=== PATIENT | male | born 1990 | race Caucasian/White ===

== ENCOUNTER 2018-11-14 14:35 | Emergency (ER) | payer OTHER ==
[~2018-11-14] VITALS: Ht 172.7 cm; Wt 78.0 kg
[~2018-11-14 14:35] MED LIST: IBUP600 PO; RXHYDACE PO
[2018-11-14 15:35] LABS: BASOPHILS ABSOLUTE AUTO 0.02 K/mm3 (0.00-0.23); BASOPHILS PERCENT AUTO 0 % (0-2); EOSINOPHILS ABSOLUTE AUTO 0.02 K/mm3 (0.00-0.68); EOSINOPHILS PERCENT AUTO 0 % (0-6); Hematocrit 44.3 % (37.0-53.0); Hemoglobin 14.7 g/dL (13.5-17.5); IMMATURE GRAN ABSOLUTE AUTO 0.03 K/mm3 (0.00-0.10); IMMATURE GRAN PERCENT AUTO 0 % (0-1); LYMPHOCYTES ABSOLUTE AUTO 1.61 K/mm3 (0.84-5.20); LYMPHOCYTES PERCENT AUTO 14 % (21-46); MONOCYTES ABSOLUTE AUTO 0.86 K/mm3 (0.16-1.47); MONOCYTES PERCENT AUTO 8 % (4-13); Mean Corpuscular HGB 31.9 pg (26.0-34.0); Mean Corpuscular HGB Conc 33.2 g/dL (31.5-36.5); Mean Corpuscular Volume 96 fL (80-100); Mean Platelet Volume 10.2 fL (9.1-12.4); NEUTROPHILS ABSOLUTE AUTO 8.66 K/mm3 (1.96-9.15); NEUTROPHILS PERCENT AUTO 77 % (41-73); Platelet Count 168 K/mm3 (150-400); RDW Coefficient Variation 11.9 % (11.7-14.2); RDW Standard Deviation 41.9 fL (35.1-46.3); Red Blood Cell Count 4.61 M/mm3 (4.30-5.90)
[2018-11-14 15:49] LABS: C-REACTIVE PROTEIN, EXT RANGE 8.37 mg/dL (0.000-0.300); Uric Acid, Blood 3.2 mg/dL (3.5-7.2)
[2018-11-14 15:50] LABS: Alanine Aminotransfer (ALT/SGP 21 U/L (12-78); Albumin, Blood 3.9 g/dL (3.4-5.0); Albumin/Globulin Ratio 1.1 (0.8-1.8); Alk Phos 66 U/L (50-136); Anion Gap 2 mmol/L (6-16); Aspartate Aminotrans (AST/SGOT 14 U/L (12-37); Bilirubin, Total 1.1 mg/dL (0.1-1.0); Blood Urea Nitrogen 10 mg/dL (8-24); CO2, Blood 30 mmol/L (21-32); Calcium, Blood 8.9 mg/dL (8.5-10.1); Chloride, Blood 105 mmol/L (98-108); Creatinine, Blood 0.71 mg/dL (0.60-1.20); Globulin, Blood 3.7 g/dL (2.2-4.0); Glomerular Filtration Rate >60 (60-); Glucose, Blood 95 mg/dL (70-99); Potassium, Blood 4.1 mmol/L (3.5-5.5); Sodium, Blood 137 mmol/L (136-145); Total Protein, Blood 7.6 g/dL (6.4-8.2)
[2018-11-14 16:45] LABS: Body Fluid Crystals NEG (NEGATIVE)
[2018-11-14 17:07] LABS: Glucose, Body Fluid 35 mg/dL; Protein, Body Fluid 3.4 g/dL
[2018-11-14 17:16] LABS: BODY FLUID RBC 0.208 (0-0); RBC Count, Synovial Fluid 208000 /mm3 (0-0)
[2018-11-14 17:27] LABS: WBC Count, Synovial Fluid 6240 /mm3 (0-180)
[2018-11-14 17:41] LABS: Appearance, Synovial Fluid Bloody (Clear); Color, Synovial Fluid Red (None-P Yel); Lymphs, Synovial Fluid 6 % (0-15); Monocytes/Macrophages, Synovia 26 % (0-65); Neutrophils, Synovial Fluid 68 % (0-24)
[2018-11-14] MEDS ORDERED: Monodox100 MG PO (18:09)
[2018-11-14] MEDS ORDERED: IBU800 MG PO (18:10)
== END 2018-11-14 18:28 | disposition home or self-care (01) ==
LOC: ER 14:35
PROVIDERS: Physician Assistant
DX: L03.115 Cellulitis of right lower limb (principal); Z79.891 Long term (current) use of opiate analgesic
CPT/HCPCS: 20610; 36415; 73562-RT; 80053; 82945; 83605; 84157; 84550; 85025; 85651; 86140; 87040; 87070; 87077; 87147; 87185; 87186; 87205; 89051; 89060; 93971; 96365-59; 96375-59; 99284-25; A9270; J0696; J1885